=== PATIENT | female | born 1975 | race African-American/Black ===

== ENCOUNTER 2016-06-28 20:45 | Emergency (ER) | payer BC ==
[~2016-06-28 20:45] MED LIST: Acetaminophen/oxyCODONE 325-5 MG Tab PO ONE
[2016-06-28] MEDS ORDERED: Ketorolac 60 MG/2 ML SDV IM ONE (20:51)
--- NOTE | 2016-06-28 20:57 | EDM.PDOC ---
ED HPI GENERAL MEDICAL PROBLEM - General Chief Complaint: General Stated Complaint: fall with wrist pain Time Seen by Provider: 06/28/16 20:51 Source of Information: Reports: Patient History Limitations: Reports: No limitations - History of Present Illness INITIAL COMMENTS - FREE TEXT/NARRATIVE: History of present illness: [1-year-old female presenting to this evening with complaints of left hand pain and wrist pain as well as coccyx and sacral pain radiating into her pelvis status post slip and fall this morning. 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 Past medical history: As per history of present illness and as reviewed below otherwise noncontributory. Surgical history: As per history of present illness and as reviewed below otherwise noncontributory. Social history: No reported history of drug or alcohol abuse. Family history: As per history of present illness and as reviewed below otherwise noncontributory. Physical exam: HEENT: Atraumatic, normocephalic, pupils reactive, negative for conjunctival pallor or scleral icterus, mucous membranes moist, throat clear, neck supple, nontender, trachea midline. Lungs: Clear to auscultation, breath sounds equal bilaterally, chest nontender. Heart: S1S2, regular, negative for clicks, rubs, or JVD. Abdomen: Soft, nondistended, nontender. Negative for masses or hepatosplenomegaly. Negative for costovertebral tenderness. Pelvis: Stable nontender. Genitourinary: Deferred. Rectal: Deferred. Extremities: Atraumatic, negative for cords or calf pain. Neurovascular unremarkable. Neuro: Awake, alert, oriented. Cranial nerves II through XII unremarkable. Cerebellum unremarkable. Motor and sensory unremarkable throughout. Exam nonfocal. Left arm looks atraumatic but yet there is a mild amount of edema in the palmar aspect of the hand and patient indicates point tenderness as well as pressure throughout the dorsal aspect of the left hand. Significant guarding noted. Diagnostics: [X-ray of left hand, pelvis, sacrum and coccyx/CT of pelvis] Therapeutics: [X. milligrams of Toradol] Impression: [Healing fracture type basi cervical area of the greater trochanter in the left hip region] Plan: [f/u thursday with ortho] Definitive disposition and diagnosis as appropriate pending reevaluation and review of above. Left Wrist Pain Score (Numeric/FACES): 8 - Related Data Allergies Allergy/AdvReac Type Severity Reaction Status Date / Time quinine Allergy Ringing in Verified 06/28/16 20:51 the Ears Home Meds: Home Meds . [No Known Home Meds] 04/08/15 [History] Past Medical History - Past Health History Medical/Surgical History: Denies Medical/Surgical History - Infectious Disease History Infectious Disease History: Reports: HIV-Human immunodeficiency virus Social & Family History - Tobacco Use Smoking Status *Q: Never Smoker Second Hand Smoke Exposure: No - Recreational Drug Use Recreational Drug Use: No ED ROS GENERAL - Review of Systems Review Of Systems: See Below (See history of present illness) ED EXAM, GENERAL - Physical Exam Exam: See Below (See history of present illness) Course - Vital Signs Last Recorded V/S: Last Vital Signs Temp 36.8 C 06/28/16 21:02 Pulse 85 06/28/16 21:02 Resp 18 06/28/16 21:02 BP 129/82 06/28/16 21:02 Pulse Ox 97 06/28/16 21:02 - Orders/Labs/Meds Orders: Active Orders 24 hr Category Date Time Status Hand 2V Lt [CR] Stat Exams 06/28/16 20:50 Taken Pelvis 1V or 2V [CR] Stat Exams 06/28/16 20:50 Taken Pelvis wo Cont [CT] Stat Exams 06/28/16 21:57 Taken Sacrum Coccyx Min 2V [CR] Stat Exams 06/28/16 20:51 Taken Meds: Medications Discontinued Medications Generic Name Dose Route Start Last Admin Trade Name Freq PRN Reason Stop Dose Admin Ketorolac Tromethamine 60 mg 06/28/16 20:51 06/28/16 21:00 Toradol IM 06/28/16 20:52 60 mg ONETIME ONE Administration Departure - Departure Time of Disposition: 23:11 Disposition: Home, Self-Care 01 Condition: good Clinical Impression: Hip fracture Qualifiers: Encounter type: initial encounter Fracture type: closed Laterality: unspecified laterality Qualified Code(s): S72.009A - Fracture of unspecified part of neck of unspecified femur, initial encounter for closed fracture Forms: ED Department Discharge Additional Instructions: The following information is given to patients seen in the emergency department who are being discharged to home. This information is to outline your options for follow-up care. We provide all patients seen in our emergency department with a follow-up referral. The need for follow-up, as well as the timing and circumstances, are variable depending upon the specifics of your emergency department visit. If you don't have a primary care physician on staff, we will provide you with a referral. We always advise you to contact your personal physician following an emergency department visit to inform them of the circumstance of the visit and for follow-up with them and/or the need for any referrals to a consulting specialist. The emergency department will also refer you to a specialist when appropriate. This referral assures that you have the opportunity for follow-up care with a specialist. All of these measure are taken in an effort to provide you with optimal care, which includes your follow-up. Under all circumstances we always encourage you to contact your private physician who remains a resource for coordinating your care. When calling for follow-up care, please make the office aware that this follow-up is from your recent emergency room visit. If for any reason you are refused follow-up, please contact the [facility] Emergency Department at and asked to speak to the emergency department charge nurse. He have any medical staff specialist in the hospital on Thursday we will call you Thursday morning with an appointment You have been provided a take home pack of pain medicine to get you through to Thursday Problem Maheshlevi GROSSMAN he will be in a facility Thursday to assist you to see the orthopedic physician as well as can be further pain medicine. You have been provided with Percocet 2 tabs (3 packs) that are for you to take home. Please take them approx every 12 hours as needed. These shold get you to your appointment time Thursday. Also take 800mg IBU every 8 hours around the clock for the until seen by ortho ( for inflammation and swelling) Leep left arm elevated and may apply ice at 20 minute intervals Return to ED as needed as discussed - My Orders Last 24 Hours: My Active Orders 06/28/16 20:50 Hand 2V Lt [CR] Stat Pelvis 1V or 2V [CR] Stat 06/28/16 20:51 Sacrum Coccyx Min 2V [CR] Stat 06/28/16 21:57 Pelvis wo Cont [CT] Stat - Assessment/Plan Last 24 Hours: My Active Orders 06/28/16 20:50 Hand 2V Lt [CR] Stat Pelvis 1V or 2V [CR] Stat 06/28/16 20:51 Sacrum Coccyx Min 2V [CR] Stat 06/28/16 21:57 Pelvis wo Cont [CT] Stat
[2016-06-28 21:09] VITALS: BP 129/82
[2016-06-28] MEDS ORDERED: Take Home: Acetaminophen/oxyCODONE 325-5 MG, 2 Tab Pack PO ONE (23:09)
[2016-06-28] MEDS ORDERED: Ondansetron 4 MG Tab.DIS PO PRN (23:09)
[2016-06-28] MEDS ORDERED: Morphine 4 MG/ML Syringe IM ONE (23:09)
== END 2016-06-28 23:45 | disposition home or self-care (01) ==
LOC: CC.ED 20:45
DX: S72.112A Displaced fracture of greater trochanter of left femur, initial encounter for closed fracture (principal); Z88.8 Allergy status to other drugs, medicaments and biological substances; W01.0XXA Fall on same level from slipping, tripping and stumbling without subsequent striking against object, initial encounter
CPT/HCPCS: 72170; 72192; 72220; 73120; 96372; 99283; A9270; J1885; J2270